=== PATIENT | male | born 1995 | race Caucasian/White ===

== ENCOUNTER 2018-08-29 21:37 | Emergency (ER) | payer SELFPAY ==
[~2018-08-29] VITALS: Ht 175.3 cm; Wt 67.0 kg
[2018-08-30] MEDS ORDERED: LIDOCAINE HCL/PF 1% 10 MG/ML 5ML VIAL IJ ONE (00:15)
[2018-08-30] MEDS ORDERED: TETANUS, DIPHTHERIA, PERTUSSIS VAC/PF 0.5ML (>7YR OLD) IM ONE (00:15)
[2018-08-30] MEDS ORDERED: BACITRACIN ZINC OINT UDPKT TOP ONE (00:15)
[2018-08-30 02:00] VITALS: BP 134/79
== END 2018-08-30 01:55 | disposition home or self-care (01) ==
LOC: EDBD → ER 21:37
DX: S61.411A Laceration without foreign body of right hand, initial encounter (principal); W26.8XXA Contact with other sharp object(s), not elsewhere classified, initial encounter; Y93.89 Activity, other specified; Y92.89 Other specified places as the place of occurrence of the external cause; Y99.8 Other external cause status
CPT/HCPCS: 12001; 90471; 90715; 99283; J3490; Z7610

== ENCOUNTER 2018-08-31 16:26 | Emergency (ER) | payer SELFPAY ==
[~2018-08-31] VITALS: Ht 175.3 cm; Wt 67.0 kg
[2018-08-31 17:00] VITALS: BP 116/73
== END 2018-08-31 17:32 | disposition home or self-care (01) ==
LOC: ER 17:00
DX: Z48.00 Encounter for change or removal of nonsurgical wound dressing (principal)
CPT/HCPCS: 99281

== ENCOUNTER 2018-09-14 16:16 | Emergency (ER) | payer SELFPAY ==
[~2018-09-14] VITALS: Ht 182.9 cm; Wt 67.0 kg
[2018-09-14] MEDS ORDERED: BACITRACIN ZINC OINT UDPKT TOP ONE (18:45)
[2018-09-14 18:49] VITALS: BP 120/78
== END 2018-09-14 18:50 | disposition home or self-care (01) ==
LOC: ER 16:16
DX: Z48.02 Encounter for removal of sutures (principal)
CPT/HCPCS: 99281